=== PATIENT | male | born 1935 | race Two or more races ===

== ENCOUNTER 2016-09-26 01:26 | Inpatient (IN) | payer MEDICARE, OTHER ==
[~2016-09-26] VITALS: Ht 175.3 cm; Wt 68.9 kg
[~2016-09-26 01:26] MED LIST: LIDOCAINE 2% JEL UROJET 10 ML MM ONE
[2016-09-26] MEDS ORDERED: LIDOCAINE 2% JEL UROJET 10 ML MM ONE ×3 (02:00→06:00)
[2016-09-26 02:24] LABS: DIFF TOTAL % 100 %; EOSINOPHILS # (AUTO) 0.4 /CMM (0.0-0.7); EOSINOPHILS % (AUTO) 1.2 % (0.0-6.0); HEMATOCRIT 34 % (39-51); HEMOGLOBIN 10.7 g/dL (13.5-17.5); LYMPHOCYTES # (AUTO) 0.9 /CMM (0.8-4.8); LYMPHOCYTES % (AUTO) 2.8 % (20.0-44.0); MEAN CORPUSCULAR HEMOGLOBIN 25 PG (26.0-33.0); MEAN CORPUSCULAR HGB CONC 32 g/dl (31.0-36.0); MEAN CORPUSCULAR VOLUME 79 fL (80-96); MONOCYTES # (AUTO) 0.9 /CMM (0.1-1.30); MONOCYTES % (AUTO) 2.8 % (2.0-12.0); NEUTROPHILS # (AUTO) 31.1 /CMM (1.8-8.9); NEUTROPHILS % (AUTO) 93.2 % (43.0-81.0); PLATELET COUNT (AUTO) 384 /CMM (150-450); RED BLOOD CELL COUNT(AUTO) 4.23 MIL/uL (4.5-6.0)
[2016-09-26 02:31] LABS: WHITE BLOOD COUNT (AUTO) 33.4 K/uL (4.3-11.0)
[2016-09-26 02:35] LABS: CALCIUM, SERUM 8.8 mg/dL (8.5-10.1); CREATININE 2.1 mg/dL (0.6-1.3); POTASSIUM 3.8 mmol/L (3.5-5.1)
[2016-09-26 02:40] LABS: KETONES,URINE 2+ (NEGATIVE); LEUKOCYTE ESTERASE ,URINE 3+ (NEGATIVE)
[2016-09-26] MEDS ORDERED: HYDROMORPHONE 1 MG/1 ML DISP.SYRIN ONE ×2 (02:40→05:40)
[2016-09-26 02:44] LABS: ADD UA MICROSCOPIC YES
[2016-09-26 02:48] LABS: RBC,URINE TOO NUMEROUS TO COUN /HPF (0-2); WBC,URINE 51-80 /HPF (0-3)
[2016-09-26] MEDS ORDERED: ONDANSETRON HCL/PF 4 MG/2 ML VIAL ONE (02:48)
[2016-09-26 02:49] LABS: ADD URINE CULTURE YES
[2016-09-26] MEDS ORDERED: LEVOFLOXACIN 750 MG /D5W 150ML PIGGYBACK IV ONE ×2 (03:00→06:30)
[2016-09-26 03:09] LABS: BAND % (MANUAL) 4 % (0.0-5.0); EOSINOPHILS % (MANUAL) 2 % (0-4); LYMPHOCYTES % (MANUAL) 2 % (16-48)
[2016-09-26 03:10] LABS: PLATELET ESTIMATE ADEQUATE
[2016-09-26 03:14] LABS: ANISOCYTOSIS 3+; HYPOCHROMASIA 1+
[2016-09-26] MEDS ORDERED: IV NS 0.9% 500 ML IV ONE (04:21)
[2016-09-26] MEDS ORDERED: IV SET PRIMARY 1 EA INFUS.SET MC ONE (04:21)
[2016-09-26] MEDS ORDERED: IV NS 0.9% 1,000 ML BAG IV ONE (05:00)
[2016-09-26] MEDS ORDERED: HYDROMORPHONE 1 MG/1 ML DISP.SYRIN IV ONE ×2 (05:00→06:00)
[2016-09-26] MEDS ORDERED: GELATIN SPONGE,ABSORBABLE 1 SPONGE SPONGE TP ONE (06:05)
[2016-09-26] MEDS ORDERED: IV SET PRIMARY PUMP SET 1 EA INFUS.SET MC ONE ×2 (07:01→07:42)
[2016-09-26] MEDS ORDERED: LEVOFLOXACIN 750 MG /D5W 150ML 0 ML IV ONE (07:01)
[2016-09-26] MEDS ORDERED: LEVOFLOXACIN 750 MG /D5W 150ML 150 ML IV ONE (07:42)
[2016-09-26 08:49] VITALS: BP 130/75
== END 2016-09-26 09:40 | disposition left against medical advice (07) | DRG 700 ==
LOC: ER 01:28 → TELE2 07:37
DX: N28.9 Disorder of kidney and ureter, unspecified (principal); R33.9 Retention of urine, unspecified; R31.9 Hematuria, unspecified; E86.0 Dehydration; D45 Polycythemia vera; Z98.890 Other specified postprocedural states; D72.829 Elevated white blood cell count, unspecified
CPT/HCPCS: 36415; 80048-TC; 81000-TC; 85025-TC; 87081-TC; 87086-TC; A4217; A4606; A6402; A6403; J1170; J1956; J2405; J3490; J7040; Z7610